=== PATIENT | female | born 1975 | race Caucasian/White ===

== ENCOUNTER 2017-11-20 12:07 | Inpatient (IN) | payer OTHER ==
[2017-11-20 12:41] VITALS: BMI 34.3
--- NOTE | 2017-11-20 13:19 | HP ---
CIWA Score - CIWA Score Nausea/Vomitin-Mild Nausea/No Vomiting Muscle Tremors: 4-Moderate,w/Arms Extend Anxiety: 4-Mod. Anxious/Guarded Agitation: 1-Slight > Activity Paroxysmal Sweats: 1-Minimal Palms Moist Orientation: 1-Uncertain about Date Tacttile Disturbances: 0-None Auditory Disturbances: 1-Very Mild Visual Disturbances: 1-Very Mild Sensitivity Headache: 2-Mild CIWA-Ar Total Score: 16 Admission ROS S - HPI Chief Complaint: I'm ready now, I wasn't before Allergies/Adverse Reactions: Allergies Allergy/AdvReac Type Severity Reaction Status Date / Time Penicillins Allergy Hives Verified 11/20/17 13:52 History of Present Illness: 41 yo woman here for detox from alcohol. Patient was here 11/16/17 and left AMA after several hours but states now she is ready. No seizures, did have black outs. States she was in residential treatment at [facility] x 4 months but relapsed and was discharged about November 05 and relapsed right away. Exam Limitations: Clinical Condition - Ebola screening Have you traveled outside of the country in the last 21 days: No (N) Have you had contact with anyone from an Ebola affected area: No Have you been sick,other than usual withdrawal symptoms: No Do you have a fever: No - Review of Systems Constitutional: Night Sweats, Changes in sleep, Weakness EENT: reports: No Symptoms Reported Respiratory: reports: No Symptoms reported Cardiac: reports: No Symptoms Reported GI: reports: Nausea, Poor Appetite, Vomiting, Indigestion, Abdominal cramping : reports: Frequency, Incontinence Musculoskeletal: reports: No Symptoms Reported Integumentary: reports: Dryness Neuro: reports: Headache, Tremors, Unsteady Gait Endocrine: reports: No Symptoms Reported Hematology: reports: No Symptoms Reported Psychiatric: reports: Judgement Intact, Mood/Affect Appropiate, Anxious Other Systems: Reviewed and Negative Patient History - Patient Medical History Hx Anemia: No Hx Asthma: No Hx Chronic Obstructive Pulmonary Disease (COPD): No Hx Cancer: No Hx Cardiac Disorders: No Hx Congestive Heart Failure: No Hx Hypertension: No Hx Hypercholesterolemia: No Hx Pacemaker: No HX Cerebrovascular Accident: No Hx Seizures: No Hx Dementia: No Hx Diabetes: No Hx Gastrointestinal Disorders: No Hx Liver Disease: No Hx Genitourinary Disorders: No Hx Sexually Transmitted Disorders: No Hx Renal Disease (ESRD): No Hx Thyroid Disease: No Hx Human Immunodeficiency Virus (HIV): No Hx Hepatitis C: No Hx Depression: Yes (anxiety) Hx Suicide Attempt: No (denies) Hx Bipolar Disorder: No Hx Schizophrenia: No - Patient Surgical History Past Surgical History: No - PPD History Previous Implant?: Yes Date: 11/18/17 (left before being read) - Reproductive History Last Menstrual Period: 10/13/17 - Smoking Cessation Smoking history: Current some day smoker Have you smoked in the past 12 months: Yes Aproximately how many cigarettes per day: 4 Initiated information on smoking cessation: Yes 'Breaking Loose' booklet given: 11/20/17 (give on floor) - Substance & Tx. History Hx Alcohol Use: Yes Hx Substance Use: No Substance Use Type: Alcohol Hx Substance Use Treatment: Yes (detox, rehab, [place] [facility]) - Substances Abused alcohol Route: Oral Frequency: Daily Amount used: 1 quart Age of first use: 20 Date of Last Use: 11/20/17 Family Disease History - Family Disease History Family Disease History: CA: Mother (STOMACH CA ) Admission Physical Exam [facility] - Vital Signs Vital Signs: Vital Signs - 24 hr 11/20/17 12:38 Temperature 97.6 F Pulse Rate 116 H Respiratory 20 Rate Blood Pressure 129/93 - Physical General Appearance: Yes: Nourished, Appropriately Dressed, Moderate Distress, Obese, Anxious HEENTM: Yes: EOMI, Hearing grossly Normal, Normocephalic, Normal Voice Respiratory: Yes: Normal Breath Sounds, No Respiratory Distress Neck: Yes: No masses,lesions,Nodules, Supple Breast: Yes: Breast Exam Deferred Cardiology: Yes: Regular Rhythm, Regular Rate Abdominal: Yes: Soft Genitourinary: Yes: Frequency, Incontinient Back: Yes: Normal Inspection Musculoskeletal: Yes: full range of Motion, Gait Steady Extremities: Yes: Normal Inspection, Non-Tender Neurological: Yes: Alert, Normal Mood/Affect, Normal Response Integumentary: Yes: Normal Color, Dry, Warm Lymphatic: Yes: Within Normal Limits - Diagnostic (1) Alcohol dependence with uncomplicated withdrawal Current Visit: Yes Status: Acute (2) Obese Current Visit: Yes Status: Chronic Qualifiers: Obesity type: unspecified obesity type Obesity classification: adult class 1 (BMI 30 - 34.9) Serious obesity comorbidity presence: without serious comorbidity Body mass index: BMI 34.0-34.9 Qualified Code(s): E66.9 - Obesity, unspecified; Z68.34 - Body mass index (BMI) 34.0-34.9, adult (3) Nicotine dependence Current Visit: Yes Status: Acute Cleared for Admission [facility] - Detox or Rehab [facility] Level of Care: Medically Managed Detox Regimen/Protocol: Librium [facility] Breath Alcohol Content Breath Alcohol Content: 0.295 Urine Pregancy Test - Result Urine Test Results: Negative- NO Line Present Urine Drug Screen - Results Drug Screen Negative: No Urine Drug Screen Results: BZO-Benzodiazepines, TCA-Tricyclic Antidepress
[2017-11-20] MEDS ORDERED: chlordiazePOXIDE HCL 25 MG CAPSULE PO PRN (13:25)
[2017-11-20] MEDS ORDERED: P-EPHED 60MG/TRIPROLIDI 2.5MG TABLET PO PRN (13:25)
[2017-11-20] MEDS ORDERED: ACETAMINOPHEN 325 MG TABLET (FP) PO PRN (13:25)
[2017-11-20] MEDS ORDERED: IBUPROFEN 400 MG TABLET (FP) PO PRN (13:25)
[2017-11-20] MEDS ORDERED: MAGNESIUM HYDROX 2400MG/30ML ORAL SUSPENSION 30 ML CUP PO PRN (13:25)
[2017-11-20] MEDS ORDERED: MAGNESIUM CITRATE 300 ML BOTTLE PO PRN (13:25)
[2017-11-20] MEDS ORDERED: LOPERAMIDE HCL 2 MG CAPSULE PO PRN (13:25)
[2017-11-20] MEDS ORDERED: NICOTINE POLACRILEX 2 MG GUM BUC PRN (13:25)
[2017-11-20] MEDS ORDERED: MENTHOL/PHENOL 1 EACH UD MM PRN (13:25)
[2017-11-20] MEDS ORDERED: guaiFENesin/D-METHORPHAN HB 10 ML UNIT-DOSE CUPS PO PRN (13:25)
[2017-11-20] MEDS ORDERED: MAG HYDROX/AL HYDROX/SIMETH 30 ML UNIT-DOSE CUP PO PRN (13:25)
[2017-11-20] MEDS ORDERED: chlordiazePOXIDE HCL 25 MG CAPSULE PO ONE (14:15)
[2017-11-20 17:07] LABS: URINE APPEARANCE SLCLOUDY; URINE BILIRUBIN NEGATIVE (<2.0 mg/dL); URINE COLOR LTYELLOW; URINE GLUCOSE (UA) NEGATIVE (NEGATIVE); URINE KETONE NEGATIVE (NEGATIVE); URINE LEUK ESTERASE TRACE (NEGATIVE); URINE NITRITE NEGATIVE (NEGATIVE); URINE PROTEIN NEGATIVE (NEGATIVE); URINE UROBILINOGEN NEGATIVE mg/dL (0.2-1.0)
[2017-11-20 17:14] LABS: EPI CELLS RARE /HPF (FEW); URINE BACTERIA MANY /hpf (NONE SEEN); URINE MUCUS RARE
[2017-11-20] MEDS: chlordiazePOXIDE HCL 25 MG CAPSULE PO SCH ×2 (17:20→22:12)
--- NOTE | 2017-11-20 18:45 | EKG ---
Test Reason : Blood Pressure : / mmHG Vent. Rate : 102 BPM Atrial Rate : 102 BPM P-R Int : 166 ms QRS Dur : 092 ms QT Int : 350 ms P-R-T Axes : 064 068 036 degrees QTc Int : 456 ms SINUS TACHYCARDIA POSSIBLE LEFT ATRIAL ENLARGEMENT BORDERLINE ECG WHEN COMPARED WITH ECG OF 16-NOV-2017 21:53, NO SIGNIFICANT CHANGE WAS FOUND Confirmed by SHAYNA PULIDO MD ([id number]) on 11/20/2017 6:45:25 PM Referred By: Confirmed By:SHAYNA PULIDO MD
[2017-11-20] MEDS: THIAMINE HCL 100 MG TABLET (FP) PO SCH (22:12)
[2017-11-20] MEDS: hydrOXYzine PAMOATE 25 MG CAPSULE (FP) PO PRN (22:13)
[2017-11-20] MEDS: MELATONIN 5 MG TABLETS PO PRN (22:14)
[2017-11-21] MEDS: chlordiazePOXIDE HCL 25 MG CAPSULE PO SCH ×4 (05:19→22:24)
--- NOTE | 2017-11-21 10:15 | CONSULT ---
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 Smokes 4 cigarettes daily Psychiatric History: Reports that her first psychiatric contact was at a rehab affiliated with [facility] in 2016. She said that she was diagnosed with MDD and started on Buspar, Gabapentin and Seroquel. Currently she sees a psychiatrist on site at [facility] where she is in a residential program. Reports being prescribed Buspar 7.5 mg po BID, Gabapentin 300 mg po TID and Seroquel 50 mg daily & 100 mg HS. Denies history of previous psychiatric hospitalization or suicidal attempt. At present, reports feeling very anxious, mildly depressed and sleeping poorly Physical/Sexual Abuse/Trauma History: Denies history of emotional, physical or sexual abuse as well as DV relationship Additional Comment: Reports history of multiple arrests including one felony conviction on charges of DUI. Denies being on parole/probation at present Mental Status Exam - Mental Status Exam Alert and Oriented to: Time, Place, Person Cognitive Function: Fair Patient Appearance: Well Groomed Mood: Depressed (mildly), Anxious Affect: Appropriate Patient Behavior: Cooperative Speech Pattern: Clear Voice Loudness: Normal Thought Process: Intact, Goal Oriented Thought Disorder: Not Present Hallucinations: Denies Suicidal Ideation: Denies Homicidal Ideation: Denies Insight/Judgement: Fair Sleep: Poorly Appetite: Poor Muscle strength/Tone: Normal Gait/Station: Normal Psychiatric Findings - Problem List ([place] 1, 2,3) (1) MDD (major depressive disorder) Current Visit: Yes Status: Chronic (2) Alcohol-induced mood disorder Current Visit: No Status: Acute (3) Alcohol-induced sleep disorder Current Visit: Yes Status: Acute (4) Alcohol dependence with uncomplicated withdrawal Current Visit: Yes Status: Acute (5) Nicotine dependence Current Visit: Yes Status: Chronic (6) Obese Current Visit: Yes Status: Chronic Qualifiers: Obesity type: unspecified obesity type Obesity classification: adult class 1 (BMI 30 - 34.9) Serious obesity comorbidity presence: without serious comorbidity Body mass index: BMI 34.0-34.9 Qualified Code(s): E66.9 - Obesity, unspecified; Z68.34 - Body mass index (BMI) 34.0-34.9, adult - Initial Treatment Plan Initial Treatment Plan: 1) Continue Buspar 7.5 mg po BID, Gabapentin 300 mg po TID and Seroquel 50 mg daily & 100 mg HS. 2) Continue inpatient detoxification
[2017-11-21] MEDS: PRENATAL VITAMINS W/ FOLIC ACID TABLET (FP) PO SCH (10:29)
[2017-11-21 10:31] LABS: HEMATOCRIT 33.7 % (32.4-45.2); HEMOGLOBIN 11.1 GM/dL (10.7-15.3); MCH 26.9 pg (25.7-33.7); MCHC 33.1 g/dl (32.0-36.0); MEAN CELL VOLUME 81.3 fl (80-96); PLATELET COUNT 183 K/MM3 (134-434); RBC 4.15 M/mm3 (3.60-5.2); RDW 18.2 % (11.6-15.6)
[2017-11-21] MEDS: hydrOXYzine PAMOATE 25 MG CAPSULE (FP) PO PRN (10:33)
[2017-11-21 10:37] LABS: CALCIUM 8.5 mg/dL (8.5-10.1); CHLORIDE 104 mmol/L (98-107); POTASSIUM 4.1 mmol/L (3.5-5.1); SODIUM 140 mmol/L (136-145)
[2017-11-21 10:42] LABS: ALBUMIN 3.4 g/dl (3.4-5.0); ANION GAP 10 MMOL/L (8-16); BLOOD UREA NITROGEN 9 mg/dL (7-18); CO2 26 mmol/L (21-32); CREATININE 0.4 mg/dL (0.55-1.02); GLUCOSE,RANDOM 82 mg/dL (74-106); SGOT/AST 22 U/L (15-37); SGPT/ALT 20 U/L (12-78); TOT PROT 6.4 g/dl (6.4-8.2)
[2017-11-21 10:43] LABS: ALK PHOS 80 U/L (45-117)
[2017-11-21] MEDS: QUEtiapine FUMARATE 50 MG TABLET PO SCH (14:45)
[2017-11-21] MEDS: GABAPENTIN 300 MG CAPSULE (FP) PO SCH ×2 (14:45→22:25)
--- NOTE | 2017-11-21 15:11 | PN ---
[facility] CIWA - CIWA Score Nausea/Vomitin-Mild Nausea/No Vomiting Muscle Tremors: 3 Anxiety: 1-Mildly Anxious Agitation: 1-Slight > Activity Paroxysmal Sweats: 4-Forehead w/Sweat Beads Orientation: 0-Oriented Tacttile Disturbances: 0-None Auditory Disturbances: 0-None Visual Disturbances: 0-None Headache: 0-None Present CIWA-Ar Total Score: 10 S Progress Note (SOAP) Subjective: Mild anxiety and restlessness, tremors of hands, mild nausea w/o vomiting and sweats. Objective: Alert and oriented x 3. Respirations quiet and unlabored. Gait steady. Lab Results WBC 7.0 K/mm3 (4.0-10.0) 11/21/17 07:30 RBC 4.15 M/mm3 (3.60-5.2) 11/21/17 07:30 Hgb 11.1 GM/dL (10.7-15.3) 11/21/17 07:30 Hct 33.7 % (32.4-45.2) 11/21/17 07:30 MCV 81.3 fl (80-96) 11/21/17 07:30 MCHC 33.1 g/dl (32.0-36.0) 11/21/17 07:30 RDW 18.2 % (11.6-15.6) H 11/21/17 07:30 Plt Count 183 K/MM3 (134-434) D 11/21/17 07:30 Sodium 140 mmol/L (136-145) 11/21/17 07:30 Potassium 4.1 mmol/L (3.5-5.1) 11/21/17 07:30 Chloride 104 mmol/L (98-107) 11/21/17 07:30 Carbon Dioxide 26 mmol/L (21-32) 11/21/17 07:30 Anion Gap 10 MMOL/L (8-16) 11/21/17 07:30 BUN 9 mg/dL (7-18) 11/21/17 07:30 Creatinine 0.4 mg/dL (0.55-1.02) L 11/21/17 07:30 Random Glucose 82 mg/dL (74-106) 11/21/17 07:30 Calcium 8.5 mg/dL (8.5-10.1) 11/21/17 07:30 Labs reviewed. Vital Signs - 24 hr 11/20/17 11/20/17 11/20/17 16:00 17:00 17:30 Temperature Pulse Rate 108 H 105 H 117 H Respiratory 18 20 20 Rate Blood Pressure 11/20/17 11/20/17 11/20/17 17:47 18:00 18:30 Temperature 98.1 F Pulse Rate 117 H 110 H 113 H Respiratory 20 20 18 Rate Blood Pressure 129/92 11/20/17 11/20/17 11/20/17 19:00 21:00 21:30 Temperature Pulse Rate 102 H 103 H 100 H Respiratory 18 20 20 Rate Blood Pressure 11/20/17 11/20/17 11/20/17 22:00 22:30 22:58 Temperature 98.1 F Pulse Rate 102 H 98 H 112 H Respiratory 20 20 20 Rate Blood Pressure 116/77 11/20/17 11/20/17 11/21/17 23:00 23:30 00:00 Temperature Pulse Rate 98 H 100 H 103 H Respiratory 20 20 20 Rate Blood Pressure 11/21/17 11/21/17 11/21/17 00:30 01:00 01:30 Temperature Pulse Rate 100 H 101 H 101 H Respiratory 18 18 18 Rate Blood Pressure 11/21/17 11/21/17 11/21/17 02:00 02:30 03:00 Temperature Pulse Rate 99 H 98 H 109 H Respiratory 18 18 18 Rate Blood Pressure 11/21/17 11/21/17 11/21/17 03:30 04:00 04:30 Temperature Pulse Rate 119 H 119 H 105 H Respiratory 18 18 18 Rate Blood Pressure 11/21/17 11/21/17 11/21/17 05:00 05:30 06:00 Temperature 98.4 F Pulse Rate 99 H 88 78 Respiratory 18 18 18 Rate Blood Pressure 137/80 11/21/17 11/21/17 11/21/17 06:30 07:00 07:30 Temperature Pulse Rate 81 80 80 Respiratory 18 18 18 Rate Blood Pressure 11/21/17 11/21/17 08:00 10:00 Temperature 97.0 F L Pulse Rate 83 72 Respiratory 18 18 Rate Blood Pressure 124/59 11/21/17 15:09 Assessment: Withdrawal symptoms. 11/21/17 15:10 Plan: Continue detox protocol.
[2017-11-21] MEDS: THIAMINE HCL 100 MG TABLET (FP) PO SCH (22:24)
[2017-11-21] MEDS: QUEtiapine FUMARATE 100 MG TABLET (FP) PO SCH (22:52)
[2017-11-22] MEDS: chlordiazePOXIDE HCL 25 MG CAPSULE PO SCH ×2 (05:35→10:15)
[2017-11-22] MEDS: GABAPENTIN 300 MG CAPSULE (FP) PO SCH ×3 (07:39→22:05)
[2017-11-22] MEDS: QUEtiapine FUMARATE 50 MG TABLET PO SCH (10:14)
[2017-11-22] MEDS: PRENATAL VITAMINS W/ FOLIC ACID TABLET (FP) PO SCH (10:15)
--- NOTE | 2017-11-22 10:28 | PN ---
[facility] CIWA - CIWA Score Nausea/Vomitin-Mild Nausea/No Vomiting Muscle Tremors: 2 Anxiety: 2 Agitation: 1-Slight > Activity Paroxysmal Sweats: 3 Orientation: 0-Oriented Tacttile Disturbances: 1-Very Mild Itch/Numbness Auditory Disturbances: 0-None Visual Disturbances: 0-None Headache: 0-None Present CIWA-Ar Total Score: 10 S Progress Note (SOAP) Subjective: interrupted sleep, sweats ,but better Objective: 11/22/17 10:28 Vital Signs Temperature 97.7 F 11/22/17 09:32 Pulse Rate 81 11/22/17 09:32 Respiratory Rate 18 11/22/17 09:32 Blood Pressure 119/75 11/22/17 09:32 O2 Sat by Pulse Oximetry (%) Laboratory Tests 11/20/17 11/21/17 11/21/17 14:14 07:30 07:30 WBC 7.0 RBC 4.15 Hgb 11.1 Hct 33.7 MCV 81.3 MCH 26.9 MCHC 33.1 RDW 18.2 H Plt Count 183 D MPV 9.0 Sodium 140 Potassium 4.1 Chloride 104 Carbon Dioxide 26 Anion Gap 10 BUN 9 Creatinine 0.4 L Creat Clearance w eGFR > 60 Random Glucose 82 Calcium 8.5 Total Bilirubin 1.0 AST 22 ALT 20 Alkaline Phosphatase 80 Total Protein 6.4 Albumin 3.4 Urine Color Ltyellow Urine Appearance Slcloudy Urine pH 7.0 Ur Specific [place] 1.010 Urine Protein Negative Urine Glucose (UA) Negative Urine Ketones Negative Urine Blood Negative Urine Nitrite Negative Urine Bilirubin Negative Urine Urobilinogen Negative Ur Leukocyte Esterase Trace Urine WBC (Auto) 3 Urine RBC (Auto) <1 Ur Epithelial Cells Rare Urine Bacteria Many Urine Mucus Rare RPR Titer 11/21/17 07:30 WBC RBC Hgb Hct MCV MCH MCHC RDW Plt Count MPV Sodium Potassium Chloride Carbon Dioxide Anion Gap BUN Creatinine Creat Clearance w eGFR Random Glucose Calcium Total Bilirubin AST ALT Alkaline Phosphatase Total Protein Albumin Urine Color Urine Appearance Urine pH Ur Specific [place] Urine Protein Urine Glucose (UA) Urine Ketones Urine Blood Urine Nitrite Urine Bilirubin Urine Urobilinogen Ur Leukocyte Esterase Urine WBC (Auto) Urine RBC (Auto) Ur Epithelial Cells Urine Bacteria Urine Mucus RPR Titer Nonreactive pt aox3 in nad abulating Assessment: 11/22/17 10:28 withdrawal sx's Plan: cont. detox increase fluids
[2017-11-22] MEDS: chlordiazePOXIDE 5 MG CAPSULE PO SCH ×2 (17:39→22:05)
[2017-11-22] MEDS: hydrOXYzine PAMOATE 25 MG CAPSULE (FP) PO PRN (17:42)
[2017-11-22] MEDS: QUEtiapine FUMARATE 100 MG TABLET (FP) PO SCH (22:04)
[2017-11-22] MEDS: THIAMINE HCL 100 MG TABLET (FP) PO SCH (22:04)
[2017-11-22] MEDS: MELATONIN 5 MG TABLETS PO PRN (22:06)
[2017-11-23] MEDS: GABAPENTIN 300 MG CAPSULE (FP) PO SCH ×3 (05:42→22:03)
[2017-11-23] MEDS: chlordiazePOXIDE 5 MG CAPSULE PO SCH ×2 (05:42→10:29)
[2017-11-23] MEDS: PRENATAL VITAMINS W/ FOLIC ACID TABLET (FP) PO SCH (10:29)
[2017-11-23] MEDS: QUEtiapine FUMARATE 50 MG TABLET PO SCH (10:29)
[2017-11-23] MEDS: hydrOXYzine PAMOATE 25 MG CAPSULE (FP) PO PRN ×3 (10:33→17:56)
--- NOTE | 2017-11-23 11:36 | PN ---
S Progress Note Note: c/o interrupted sleep, anxious Vital Signs Temperature 97.9 F 11/23/17 09:18 Pulse Rate 94 H 11/23/17 09:18 Respiratory Rate 18 11/23/17 09:18 Blood Pressure 117/83 11/23/17 09:18 O2 Sat by Pulse Oximetry (%) Laboratory Last Values WBC 7.0 K/mm3 (4.0-10.0) 11/21/17 07:30 RBC 4.15 M/mm3 (3.60-5.2) 11/21/17 07:30 Hgb 11.1 GM/dL (10.7-15.3) 11/21/17 07:30 Hct 33.7 % (32.4-45.2) 11/21/17 07:30 MCV 81.3 fl (80-96) 11/21/17 07:30 MCH 26.9 pg (25.7-33.7) 11/21/17 07:30 MCHC 33.1 g/dl (32.0-36.0) 11/21/17 07:30 RDW 18.2 % (11.6-15.6) H 11/21/17 07:30 Plt Count 183 K/MM3 (134-434) D 11/21/17 07:30 MPV 9.0 fl (7.5-11.1) 11/21/17 07:30 Sodium 140 mmol/L (136-145) 11/21/17 07:30 Potassium 4.1 mmol/L (3.5-5.1) 11/21/17 07:30 Chloride 104 mmol/L (98-107) 11/21/17 07:30 Carbon Dioxide 26 mmol/L (21-32) 11/21/17 07:30 Anion Gap 10 MMOL/L (8-16) 11/21/17 07:30 BUN 9 mg/dL (7-18) 11/21/17 07:30 Creatinine 0.4 mg/dL (0.55-1.02) L 11/21/17 07:30 Creat Clearance w eGFR > 60 (>60) 11/21/17 07:30 Random Glucose 82 mg/dL (74-106) 11/21/17 07:30 Calcium 8.5 mg/dL (8.5-10.1) 11/21/17 07:30 Total Bilirubin 1.0 mg/dL (0.2-1.0) 11/21/17 07:30 AST 22 U/L (15-37) 11/21/17 07:30 ALT 20 U/L (12-78) 11/21/17 07:30 Alkaline Phosphatase 80 U/L (45-117) 11/21/17 07:30 Total Protein 6.4 g/dl (6.4-8.2) 11/21/17 07:30 Albumin 3.4 g/dl (3.4-5.0) 11/21/17 07:30 Urine Color Ltyellow 11/20/17 14:14 Urine Appearance Slcloudy 11/20/17 14:14 Urine pH 7.0 (5.0-8.0) 11/20/17 14:14 Ur Specific [place] 1.010 (1.001-1.035) 11/20/17 14:14 Urine Protein Negative (NEGATIVE) 11/20/17 14:14 Urine Glucose (UA) Negative (NEGATIVE) 11/20/17 14:14 Urine Ketones Negative (NEGATIVE) 11/20/17 14:14 Urine Blood Negative (NEGATIVE) 11/20/17 14:14 Urine Nitrite Negative (NEGATIVE) 11/20/17 14:14 Urine Bilirubin Negative (<2.0 mg/dL) 11/20/17 14:14 Urine Urobilinogen Negative mg/dL (0.2-1.0) 11/20/17 14:14 Ur Leukocyte Esterase Trace (NEGATIVE) 11/20/17 14:14 Urine WBC (Auto) 3 /hpf (3-5) 11/20/17 14:14 Urine RBC (Auto) <1 /hpf (0-3) 11/20/17 14:14 Ur Epithelial Cells Rare /HPF (FEW) 11/20/17 14:14 Urine Bacteria Many /hpf (NONE SEEN) 11/20/17 14:14 Urine Mucus Rare 11/20/17 14:14 RPR Titer Nonreactive (NONREACTIVE) 11/21/17 07:30 Patient Aox3 no distress no adventitious breath sounds ambulating in the unit with no limitations withdrawal sx Plan: discharge in the AM continue detox continue to monitor
[2017-11-23] MEDS: chlordiazePOXIDE HCL 10 MG CAPSULE PO SCH ×2 (17:56→22:03)
[2017-11-23] MEDS: QUEtiapine FUMARATE 100 MG TABLET (FP) PO SCH (22:01)
[2017-11-23] MEDS: THIAMINE HCL 100 MG TABLET (FP) PO SCH (22:03)
[2017-11-23] MEDS: MELATONIN 5 MG TABLETS PO PRN (22:04)
[2017-11-24 06:46] VITALS: BP 89/44; PULSE 74; TEMP 96.1
[2017-11-24] MEDS: GABAPENTIN 300 MG CAPSULE (FP) PO SCH (07:35)
[2017-11-24] MEDS: chlordiazePOXIDE HCL 10 MG CAPSULE PO SCH (07:35)
--- NOTE | 2017-11-24 08:25 | PN ---
[facility] Progress Note (SOAP) Subjective: I'm better -going to rehab. Objective: 11/24/17 08:24 Vital Signs Temperature 96.1 F L 11/24/17 06:45 Pulse Rate 74 11/24/17 06:45 Respiratory Rate 18 11/24/17 06:45 Blood Pressure 89/44 11/24/17 06:45 O2 Sat by Pulse Oximetry (%) Laboratory Tests 11/20/17 11/21/17 11/21/17 14:14 07:30 07:30 WBC 7.0 RBC 4.15 Hgb 11.1 Hct 33.7 MCV 81.3 MCH 26.9 MCHC 33.1 RDW 18.2 H Plt Count 183 D MPV 9.0 Sodium 140 Potassium 4.1 Chloride 104 Carbon Dioxide 26 Anion Gap 10 BUN 9 Creatinine 0.4 L Creat Clearance w eGFR > 60 Random Glucose 82 Calcium 8.5 Total Bilirubin 1.0 AST 22 ALT 20 Alkaline Phosphatase 80 Total Protein 6.4 Albumin 3.4 Urine Color Ltyellow Urine Appearance Slcloudy Urine pH 7.0 Ur Specific [place] 1.010 Urine Protein Negative Urine Glucose (UA) Negative Urine Ketones Negative Urine Blood Negative Urine Nitrite Negative Urine Bilirubin Negative Urine Urobilinogen Negative Ur Leukocyte Esterase Trace Urine WBC (Auto) 3 Urine RBC (Auto) <1 Ur Epithelial Cells Rare Urine Bacteria Many Urine Mucus Rare RPR Titer 11/21/17 07:30 WBC RBC Hgb Hct MCV MCH MCHC RDW Plt Count MPV Sodium Potassium Chloride Carbon Dioxide Anion Gap BUN Creatinine Creat Clearance w eGFR Random Glucose Calcium Total Bilirubin AST ALT Alkaline Phosphatase Total Protein Albumin Urine Color Urine Appearance Urine pH Ur Specific [place] Urine Protein Urine Glucose (UA) Urine Ketones Urine Blood Urine Nitrite Urine Bilirubin Urine Urobilinogen Ur Leukocyte Esterase Urine WBC (Auto) Urine RBC (Auto) Ur Epithelial Cells Urine Bacteria Urine Mucus RPR Titer Nonreactive pt aox3 in nad ambulating well Assessment: 11/24/17 08:24 detox completed [facility] Plan: d/c today rehab at [facility]
--- NOTE | 2017-11-24 08:26 | DS ---
[facility] Detox Discharge Summary Admission Date: 11/20/17 Discharge Date: 11/24/17 - History Present History: Alcohol Dependence - Physical Exam Results Vital Signs: Vital Signs Temperature 96.1 F L 11/24/17 06:45 Pulse Rate 74 11/24/17 06:45 Respiratory Rate 18 11/24/17 06:45 Blood Pressure 89/44 11/24/17 06:45 O2 Sat by Pulse Oximetry (%) - Treatment Hospital Course: Detox Protocol Followed, Detoxed Safely, Responded well, Discharged Condition Good - Medication Discharge Medications: Ambulatory Orders Gabapentin [Neurontin -] 300 mg PO Q8H #90 capsule 11/17/17 Bupropion HCl [Bupropion Xl] 300 mg PO DAILY 11/20/17 Ergocalciferol [Vitamin D2] 50,000 unit PO WEEKLY 11/20/17 Quetiapine Fumarate [Seroquel] 100 tab PO HS 11/20/17 traZODone HCL [Trazodone HCl] 50 mg PO HS 11/20/17 Buspirone HCl 7.5 mg PO BID #14 tablet 11/21/17 Gabapentin [Neurontin -] 300 mg PO TID #90 capsule 11/21/17 Quetiapine Fumarate [Seroquel -] 50 mg PO DAILY #30 tablet 11/21/17 Quetiapine Fumarate [Seroquel] 100 mg PO HS #30 tablet 11/21/17 - Diagnosis (1) Alcohol dependence with uncomplicated withdrawal Current Visit: Yes Status: Chronic (2) Nicotine dependence Current Visit: Yes Status: Chronic Qualifiers: Nicotine product type: cigarettes Substance use status: in withdrawal Qualified Code(s): F17.213 - Nicotine dependence, cigarettes, with withdrawal - AMA Did Patient Leave Against Medical Advice: No
== END 2017-11-24 08:52 | disposition other institution (70) | DRG 775 ==
LOC: YASAS 12:07 → Y6N 14:06
PROVIDERS: ADMIT Surgery; ATTEND Surgery
PROC: HZ2ZZZZ Detoxification Services for Substance Abuse Treatment (ICD-10-PCS; principal; 2017-11-20)
DX: F10.230 Alcohol dependence with withdrawal, uncomplicated (principal); F10.24 Alcohol dependence with alcohol-induced mood disorder; F10.282 Alcohol dependence with alcohol-induced sleep disorder; F17.213 Nicotine dependence, cigarettes, with withdrawal; F33.9 Major depressive disorder, recurrent, unspecified; E66.9 Obesity, unspecified; Z68.34 Body mass index [BMI] 34.0-34.9, adult; Z88.0 Allergy status to penicillin
CPT/HCPCS: 36415; 80053; 81003; 81015; 85027; 86593; 93005; 93010